=== PATIENT | male | born 1945 | race Caucasian/White ===

== ENCOUNTER 2016-11-04 06:48 | Observation (INO) | payer OTHER ==
[~2016-11-04] VITALS: Ht 172.7 cm; Wt 99.9 kg
[~2016-11-04 06:48] MED LIST: CHOL1TAB42 PO; CINN500C13 PO; DICL75TA PO; GABA300C5 PO; LISI-515 PO; METF1000 PO; MULT-65 PO; NOVOLOGMXP SQ; OMEG100010 PO; PRAV80TA2 PO; PROSCAP3 PO; SAW500CA PO; STOO100C PO; ZOVI400T PO
[2016-11-04] MEDS ORDERED: GENTAMICIN SULFATE 80 MG/2 ML VIAL ONE (07:10)
[2016-11-04] MEDS ORDERED: BUPIVACAINE/EPINEPHRINE 0.25% 50 ML VIAL ONE (07:10)
[2016-11-04] MEDS ORDERED: POVIDONE IODINE 5% (ANTISEPSIS KIT) 4 APPLICATIONS EACH NARE PRN (07:30)
[2016-11-04] MEDS ORDERED: CHLORHEXIDINE GLUCONATE 2 % 1 PACK (2 CLOTHS) TOPICAL PRN (07:30)
[2016-11-04] MEDS ORDERED: SODIUM CHLORID 0.9% 500 ML IV PRN (07:30)
[2016-11-04] MEDS ORDERED: ceFAZolin 1,000 MG/NS 100 ML IV SCH ×2 (07:30)
[2016-11-04] MEDS ORDERED: METOPROLOL TARTRATE 25 MG TAB PO PRN (07:30)
[2016-11-04] MEDS ORDERED: LACTATED RINGER'S 1000 ML IV PRN (07:30)
[2016-11-04] MEDS ORDERED: CHLORHEXIDINE GLUCONATE 4% SOLN 120 ML BTL TOPICAL SCH (07:30)
[2016-11-04] MEDS ORDERED: INSULIN HUMAN REGULAR 1,000 UNITS/10 ML VIAL SQ PRN (07:30)
[2016-11-04 07:48] VITALS: BP 147/83; PULSE 68; RESP 18; TEMP 97.8; O2SAT 99
[2016-11-04] MEDS ORDERED: fentaNYL CITRATE 250 MCG/5 ML AMP ONE (09:24)
[2016-11-04] MEDS ORDERED: ACETAMINOPHEN 1000 MG/100 ML VIAL IV ONE (09:24)
[2016-11-04] MEDS ORDERED: MIDAZOLAM HCL 2 MG/2 ML VIAL ONE (09:24)
[2016-11-04] MEDS ORDERED: FAMOTIDINE 20 MG/2 ML VIAL ONE (09:32)
[2016-11-04] MEDS ORDERED: MORPHINE SULFATE 4 MG/ML INJ ONE (11:39)
[2016-11-04] MEDS ORDERED: DO NOT ADM ANY ANTICOAGULANT DRUGS PRN (12:00)
[2016-11-04] MEDS ORDERED: NEOSTIGMINE 3 MG/3 ML SYR IV ONE (12:00)
[2016-11-04] MEDS ORDERED: LACTATED RINGER'S 1000 ML INJ 1,000 ML IV ONE (12:00)
[2016-11-04] MEDS ORDERED: ONDANSETRON HCL 4 MG/2 ML VIAL IV PUSH ONE (12:00)
[2016-11-04] MEDS ORDERED: ACETAMINOPHEN/HYDROcodone 325 MG/7.5 MG TAB PO PRN ×2 (12:00→13:45)
[2016-11-04] MEDS ORDERED: ePHEDrine/NS 25 MG/5 ML SYR IV ONE (12:00)
[2016-11-04] MEDS ORDERED: PROPOFOL 200 MG/20 ML AMP IV ONE (12:00)
[2016-11-04] MEDS ORDERED: BISACODYL 10 MG SUPP RECTAL PRN (13:45)
[2016-11-04] MEDS: SODIUM CHLORIDE 0.9% FLUSH 5 ML FLUSH IVF SCH ×2 (13:45→21:50)
[2016-11-04] MEDS ORDERED: ONDANSETRON HCL 4 MG/2 ML VIAL IV PRN (13:45)
[2016-11-04] MEDS ORDERED: SOD PHOSPHATE/SOD BIPHOSPHATE (ADULT) ENEMA 133ML PR PRN (13:45)
[2016-11-04] MEDS ORDERED: ALUMINUM/MAGNESIUM/SIMETH 30 ML CUP PO PRN (13:45)
[2016-11-04] MEDS ORDERED: SODIUM CHLORIDE 0.9% FLUSH 5 ML FLUSH IVF PRN (13:45)
[2016-11-04] MEDS ORDERED: Post-op Orders (for Pharmacy) MISC XX ONE (13:45)
[2016-11-04] MEDS: ACETAMINOPHEN/HYDROcodone 325 MG/7.5 MG TAB PO PRN ×2 (14:30→17:18)
--- NOTE | 2016-11-04 15:27 | RADRPT ---
EXAM DATE/TIME: 11/04/2016 11:03 [place] COMPARISON: No previous studies available for comparison. INDICATIONS : L4-5 laminectomy. MEDICAL HISTORY : None. SURGICAL HISTORY : None. ENCOUNTER: Initial ACUITY: 1 day PAIN SCORE: Non-responsive. LOCATION: Lumbar spine. FINDINGS: Surgical instrument is noted posteriorly at the L4-L5 level. CONCLUSION: Surgical instrument is noted posteriorly at the L4-L5 level. Johnathan Porras MD on November 04, 2016 at 15:23 Board Certified Radiologist. This report was verified electronically.
[2016-11-04] MEDS: MORPHINE SULFATE 4 MG/ML INJ IV PUSH PRN ×2 (15:30→21:50)
--- NOTE | 2016-11-04 15:54 | HHI.HP ---
[facility]ician Shad Sahu MD Admission Diagnosis Diagnoses: Travel History International Travel<30 Days: No Contact w/Intl Traveler <30 Da: No History of Present Illness Mr. Srinivasan is a 70 year old male. He had a lumbar spine surgery today related to lumbar spine stenosis. Severe lumbar spine stenosis was present at L3-4. Mild Lumbar spine stenosis was present at L5-S1, Moderate spine stenosis was present at L4-5. He has pain post op, when seen. The main reason he is staying is difficulty standing post op. He can move both limbs and has sensation, but his strength was not yet intact, so further monitoring is warranted. No other complaints. Medical conditions are DM2, HTN, BPH, and Hyperlipidemia. Review of Systems Constitutional: DENIES: Fatigue, Fever, Chills Eyes: DENIES: Blurred vision, Diplopia Ears, nose, mouth, throat: DENIES: Hearing loss, Vertigo Respiratory: DENIES: Apneas, Cough, Wheezing Cardiovascular: DENIES: Chest pain, Palpitations Gastrointestinal: DENIES: Abdominal pain, Black stools, Bloody stools Musculoskeletal: COMPLAINS OF: Back pain, DENIES: Joint pain Integumentary: DENIES: Abnormal pigmentation Hematologic/lymphatic: DENIES: Bruising Immunologic/allergic: DENIES: Eczema Neurologic: COMPLAINS OF: Abnormal gait, Localized weakness, DENIES: Headache , Paresthesias, Speech Problems, Tremor, Poor Balance Psychiatric: DENIES: Anxiety, Confusion Past Family Social History Past Medical History Diabetes mellitus type 2 Osteoarthritis BPH Transient hepatitis at 18 years of age (likely hepatitis A) Hypertension Hyperlipidemia Past Surgical History Shoulder surgery at left for rotator cuff Shoulder surgery at right first and cell procedure Reported Medications Reported Meds & Active Scripts Active Reported Diclofenac Sodium DR (Diclofenac Sodium) 75 Mg Tabdr 75 Mg PO BID Gabapentin 300 Mg Cap 300 Mg PO BID Zovirax (Acyclovir) 400 Mg Tab 400 Mg PO BID Lisinopril 20 Mg Tab 20 Mg PO DAILY Pravastatin 80 Mg Tab 80 Mg PO DAILY Metformin (Metformin HCl) 1,000 Mg Tab 1,000 Mg PO BIDPC With meals Novolog Mix 70-30 Inj (Insulin Aspart Prota 70%/Aspart 30%) 1,000 Unit/10 Ml Vial 45 Units SQ HS Stool Softener (Docusate Sodium) 100 Mg Cap 1 Cap PO DAILY Saw Cunningham 500 Mg Capsule 1 Cap PO DAILY Prostate Therapy Complex (Misc Natural Products) 1 Cap 1 Cap PO DAILY Raymond 3 1000 mg (Raymond-3 Fatty Acids) 1 Cap Cap 2 Cap PO DAILY Vitamin D-3 (Cholecalciferol) 2,000 Unit Tab 2,000 Unit PO DAILY Sm Cinnamon (Cinnamon) 500 Mg Cap 1,000 Mg PO DAILY Multi-Vitamin Daily (Multiple Vitamin) 1 Tab Tab 1 Tab PO DAILY Allergies: Coded Allergies: No Known Allergies (Unverified , 11/04/16) Active Ordered Medications Administered Medications Medications (Trade) Dose Ordered Sig/Stevie Route PRN Reason Start Time Stop Time Status Last Admin Dose Admin Chlorhexidine Gluconate (Hibiclens 4% Top Soln) 1 applic ONCE TOPICAL 11/04/16 07:30 11/07/16 07:29 11/04/16 08:23 Acetaminophen/ Hydrocodone Bitart (Byers 7.5-325 Mg) 1 tab Q4H PRN PO PAIN SCALE 1 TO 5 11/04/16 13:45 11/04/16 14:30 Family History Mother had malignant neoplastic disease Social History Former smoker, not currently smoking No alcohol use No drug abuse Physical Exam Vital Signs Vital Signs Date Time Temp Pulse Resp B/P Pulse Ox O2 Delivery O2 Flow Rate FiO2 11/04/16 12:15 97.5 76 20 140/75 94 Room Air 11/04/16 12:00 97.6 82 22 106/55 94 Room Air 11/04/16 11:45 83 22 127/70 93 Room Air 11/04/16 11:33 97.6 85 22 148/80 100 Nasal Cannula 2 11/04/16 07:48 97.8 68 18 147/83 99 Physical Exam GENERAL: NAD, A&Ox3 HEAD: Normocephalic. NECK: Supple, trachea midline. No lymphadenopathy. EYES: No scleral icterus. No injection or drainage. CARDIOVASCULAR: Regular rate and rhythm without murmurs, gallops, or rubs. RESPIRATORY: Breath sounds equal bilaterally. No accessory muscle use. GASTROINTESTINAL: Abdomen soft, non-tender, nondistended. MUSCULOSKELETAL: No cyanosis, or edema. Lower back pain with movements SKIN: Warm and dry. NEURO: No focal neurological deficitis. No asymmetry. Weakness in lower extremities. Imaging Last Impressions Lumbar Spine X-Ray 11/04/16 0000 Signed Impressions: Service Date/Time: , November 04, 2016 11:03 - CONCLUSION: Surgical instrument is noted posteriorly at the L4-L5 level. Johnathan Porras MD Assessment and Plan Problem List: (1) Hyperlipidemia ICD Code: E78.5 Status: Acute (2) Osteoarthritis ICD Code: M19.90 Status: Acute (3) Hypertension ICD Code: I10 Status: Acute (4) Diabetes mellitus type 2 in nonobese ICD Code: E11.9 Status: Acute Assessment and Plan Assessment and plan 70-year-old male status post lumbar surgery for stenosis Postop lumbar surgery for spinal stenosis Lower extremity weakness Bedrest overnight Reevaluate in a.m. Neurosurgeon following When necessary pain treatments Diabetes mellitus type 2 Follow blood sugars Insulin sliding scale Diabetic diet Hypertension Follow blood pressure Continue baseline treatments Hyperlipidemia Resume baseline treatments Follow as an outpatient DVT prophylaxis SCDs Discharge planning Pending improvement in patient's clinical status Shin Aquino MD Nov 04, 2016 3:54 pm
[2016-11-04] MEDS ORDERED: GLUCAGON 1 MG/ML VIAL OTHER PRN (16:00)
[2016-11-04] MEDS ORDERED: DEXTROSE 50% IN WATER 50 ML VIAL(D50) IV PRN (16:00)
[2016-11-04 16:40] VITALS: BP 157/90; PULSE 79; RESP 18; TEMP 97; O2SAT 97
[2016-11-04] MEDS: metFORMIN HCL 500 MG TAB PO SCH (17:14)
[2016-11-04] MEDS: LACTATED RINGER'S 1000 ML INJ 1,000 ML IV SCH (17:14)
[2016-11-04] MEDS: INSULIN ASPART SUPPLEMENTAL SCALE SQ SCH ×2 (17:16→22:04)
[2016-11-04 19:00] VITALS: BP 162/99; PULSE 68; RESP 18; TEMP 98.8; O2SAT 96
[2016-11-04] MEDS ORDERED: ZOLPIDEM TARTRATE 5 MG TAB PO PRN (21:00)
[2016-11-04] MEDS: ACYCLOVIR 200 MG CAP PO SCH (21:49)
[2016-11-04] MEDS: DICLOFENAC SODIUM 75 MG DELAYED RELEASE TAB PO SCH (21:49)
[2016-11-04] MEDS: GABAPENTIN 300 MG CAP PO SCH (21:50)
[2016-11-04] MEDS: INSULIN ASPAR PROT 70/30 1,000 UNITS/10 ML VIAL SQ SCH (22:05)
[2016-11-05] VITALS (7 sets, daily range): BP systolic 121–157; BP diastolic 63–80; PULSE 70–90; RESP 16–18; TEMP 95.1–98.6; O2SAT 93–95
[2016-11-05] MEDS: LACTATED RINGER'S 1000 ML INJ 1,000 ML IV SCH ×2 (02:01→08:58)
[2016-11-05] MEDS: MORPHINE SULFATE 4 MG/ML INJ IV PUSH PRN (05:23)
[2016-11-05] MEDS: INSULIN ASPART SUPPLEMENTAL SCALE SQ SCH ×4 (05:27→20:41)
--- NOTE | 2016-11-05 07:44 | PD.ORT.PN ---
Subjective Subjective Remarks pt states he is still in a lot of pain and having difficulty ambulating did speak to his nurse who states overnight caregiver said he was able to ambulate to the restroom with a walker with no difficulty Objective Vitals Vital Signs Date Time Temp Pulse Resp B/P Pulse Ox O2 Delivery O2 Flow Rate FiO2 11/05/16 06:48 77 11/05/16 04:00 98.6 77 17 121/65 95 11/05/16 00:00 98.5 80 17 121/80 94 11/04/16 19:00 98.8 68 18 162/99 96 11/04/16 16:40 97.0 79 18 157/90 97 11/04/16 12:15 97.5 76 20 140/75 94 Room Air 11/04/16 12:00 97.6 82 22 106/55 94 Room Air 11/04/16 11:45 83 22 127/70 93 Room Air 11/04/16 11:33 97.6 85 22 148/80 100 Nasal Cannula 2 11/04/16 07:48 97.8 68 18 147/83 99 I/O 11/04/16 11/04/16 11/04/16 11/05/16 11/05/16 11/05/16 07:00 15:00 23:00 07:00 15:00 23:00 Intake Total 1230 ml 480 ml Output Total 25 ml 325 ml Balance 1205 ml -325 ml 480 ml Intake Oral 480 ml IV Total 30 ml Other 1200 ml Output Urine Total 325 ml Estimated Blood Loss 25 ml # Voids 2 # Bowel Movements 0 Objective Remarks Patient resting in bed able to sit up and come to side of bed with no difficulty lumbar spine incision healing well, dermabond in place motor is +5/5 to lower extremities Assessment & Plan Assessment and Plan POD # 1 s/p L4-5 laminectomy/diskectomy PT-full weight bearing ambulation if PT feels patient is ambulating safely, discharge home today nurse to call me after patient seen by therapist orthopedically stable was contacted after PT assessment--- recommended walker and back brace and orders were put in. Recommendation was for patient to stay one more night to work on safe ambulation and transferring. If appropriate, will d/c home on Monday 11/06 Sharon Nye Nov 05, 2016 07:44
[2016-11-05] MEDS: metFORMIN HCL 500 MG TAB PO SCH ×2 (08:22→15:36)
[2016-11-05] MEDS: PRAVASTATIN SOD 80 MG TAB PO SCH (08:22)
[2016-11-05] MEDS: DICLOFENAC SODIUM 75 MG DELAYED RELEASE TAB PO SCH ×2 (08:22→20:32)
[2016-11-05] MEDS: GABAPENTIN 300 MG CAP PO SCH ×2 (08:22→20:32)
[2016-11-05] MEDS: SODIUM CHLORIDE 0.9% FLUSH 5 ML FLUSH IVF SCH ×2 (08:22→20:41)
[2016-11-05] MEDS: ACYCLOVIR 200 MG CAP PO SCH ×2 (08:22→20:32)
[2016-11-05] MEDS: MULTIVITAMIN TAB PO SCH (08:22)
[2016-11-05] MEDS: LISINOPRIL 20 MG TAB PO SCH (08:22)
[2016-11-05] MEDS: ACETAMINOPHEN/HYDROcodone 325 MG/7.5 MG TAB PO PRN ×3 (08:23→20:33)
[2016-11-05] MEDS ORDERED: WALKER WHEELS/F1 MIS (08:54)
--- NOTE | 2016-11-05 11:37 | HHI.PR ---
Subjective Remarks Additional strength improved since yesterday. He is able to walk with walker. However, he continues to complain of lower extremity weakness with attempts to ambulate. She says this does not bother him when he is seated or laying flat. Objective Vital Signs Date Time Temp Pulse Resp B/P Pulse Ox O2 Delivery O2 Flow Rate FiO2 11/05/16 10:53 96.8 70 18 123/63 95 11/05/16 08:10 98.3 80 17 140/68 95 11/05/16 06:48 77 11/05/16 04:00 98.6 77 17 121/65 95 11/05/16 00:00 98.5 80 17 121/80 94 11/04/16 19:00 98.8 68 18 162/99 96 11/04/16 16:40 97.0 79 18 157/90 97 11/04/16 12:15 97.5 76 20 140/75 94 Room Air 11/04/16 12:00 97.6 82 22 106/55 94 Room Air 11/04/16 11:45 83 22 127/70 93 Room Air I/O 11/04/16 11/04/16 11/04/16 11/05/16 11/05/16 11/05/16 07:00 15:00 23:00 07:00 15:00 23:00 Intake Total 1230 ml 480 ml Output Total 25 ml 325 ml Balance 1205 ml -325 ml 480 ml Intake Oral 480 ml IV Total 30 ml Other 1200 ml Output Urine Total 325 ml Estimated Blood Loss 25 ml # Voids 2 # Bowel Movements 0 Imaging Last Impressions Lumbar Spine X-Ray 11/04/16 0000 Signed Impressions: Service Date/Time: October 11:03 - CONCLUSION: Surgical instrument is noted posteriorly at the L4-L5 level. Johnathan Porras MD Objective Remarks GENERAL: NAD, A&Ox3 HEAD: Normocephalic. NECK: Supple, trachea midline. No lymphadenopathy. EYES: No scleral icterus. No injection or drainage. CARDIOVASCULAR: Regular rate and rhythm without murmurs, gallops, or rubs. RESPIRATORY: Breath sounds equal bilaterally. No accessory muscle use. GASTROINTESTINAL: Abdomen soft, non-tender, nondistended. MUSCULOSKELETAL: No cyanosis, or edema. SKIN: Warm and dry. NEURO: No focal neurological deficitis. A/P Problem List: (1) Lumbar spinal stenosis ICD Code: M48.06 (2) Diabetes mellitus type 2 in nonobese ICD Code: E11.9 (3) Hypertension ICD Code: I10 (4) Osteoarthritis ICD Code: M19.90 (5) Hyperlipidemia ICD Code: E78.5 Assessment and Plan Assessment and plan 70-year-old male postop lumbar spine surgery for lumbar spinal stenosis Postop lumbar surgery for spinal stenosis Lower extremity weakness Mild improvement Continue ambulation with PT and walker For possible inflammatory etiology and providing him a 1 time Solu-Medrol 40 mg IV dose Also for inflammation Start Naprosyn 250 mg by mouth twice a day Reevaluate in a.m. Orthopedic surgery following Continue When necessary pain treatments Diabetes mellitus type 2 Blood sugars well controlled Follow blood sugars Insulin sliding scale Diabetic diet Hypertension Blood pressure stable Follow blood pressure Continue baseline treatments Hyperlipidemia Resume baseline treatments Follow as an outpatient DVT prophylaxis SCDs Discharge planning Pending further improvement in patient's clinical status Shin Aquino MD Nov 05, 2016 11:37
[2016-11-05] MEDS ORDERED: NAPROXEN 500 MG TAB PO ONE (12:00)
[2016-11-05] MEDS ORDERED: methylPREDNISolone SOD SUCC 40 MG/1 ML VIAL IV PUSH ONE (12:00)
[2016-11-05] MEDS: NAPROXEN 250 MG TAB PO SCH (20:32)
[2016-11-05] MEDS: DOCUSATE SODIUM 100 MG CAP PO SCH (20:32)
[2016-11-05] MEDS: INSULIN ASPAR PROT 70/30 1,000 UNITS/10 ML VIAL SQ SCH (20:41)
[2016-11-06 00:40] VITALS: BP 138/79; PULSE 73; RESP 17; TEMP 96.5; O2SAT 94
[2016-11-06] MEDS: LACTATED RINGER'S 1000 ML INJ 1,000 ML IV SCH (01:34)
[2016-11-06 04:45] VITALS: BP 134/81; PULSE 87; RESP 17; TEMP 96.6; O2SAT 96
[2016-11-06] MEDS: INSULIN ASPART SUPPLEMENTAL SCALE SQ SCH (05:25)
[2016-11-06 08:00] VITALS: BP 157/75; PULSE 84; RESP 18; TEMP 96.5; O2SAT 99
[2016-11-06] MEDS: DICLOFENAC SODIUM 75 MG DELAYED RELEASE TAB PO SCH (08:37)
[2016-11-06] MEDS: PRAVASTATIN SOD 80 MG TAB PO SCH (08:38)
[2016-11-06] MEDS: NAPROXEN 250 MG TAB PO SCH (08:38)
[2016-11-06] MEDS: metFORMIN HCL 500 MG TAB PO SCH (08:38)
[2016-11-06] MEDS: DOCUSATE SODIUM 100 MG CAP PO SCH (08:38)
[2016-11-06] MEDS: LISINOPRIL 20 MG TAB PO SCH (08:38)
[2016-11-06] MEDS: ACYCLOVIR 200 MG CAP PO SCH (08:38)
[2016-11-06] MEDS: GABAPENTIN 300 MG CAP PO SCH (08:39)
[2016-11-06] MEDS: MULTIVITAMIN TAB PO SCH (08:39)
[2016-11-06] MEDS: SODIUM CHLORIDE 0.9% FLUSH 5 ML FLUSH IVF SCH (08:42)
[2016-11-06] MEDS ORDERED: HYDR-3580 PO (10:38)
[2016-11-06] MEDS ORDERED: NAPR250T PO (10:38)
[2016-11-06] MEDS ORDERED: DOCU100C PO (10:38)
--- NOTE | 2016-11-06 10:39 | PD.ORT.PN ---
Subjective Subjective Remarks doing well. walking in hallway. no issues. Objective Vitals Vital Signs Date Time Temp Pulse Resp B/P Pulse Ox O2 Delivery O2 Flow Rate FiO2 11/06/16 08:00 96.5 84 18 157/75 99 11/06/16 04:45 96.6 87 17 134/81 96 11/06/16 00:40 96.5 73 17 138/79 94 11/05/16 20:45 97.7 88 18 137/73 93 11/05/16 15:47 95.1 90 16 157/76 94 11/05/16 10:53 96.8 70 18 123/63 95 I/O 11/05/16 11/05/16 11/05/16 11/06/16 11/06/16 11/06/16 07:00 15:00 23:00 07:00 15:00 23:00 Intake Total 480 ml 720 ml 240 ml 240 ml Output Total 700 ml Balance 480 ml 20 ml 240 ml 240 ml Intake Oral 480 ml 720 ml 240 ml 240 ml Output Urine Total 700 ml # Voids 2 3 1 2 # Bowel Movements 0 0 0 Objective Remarks pt OOB and walking in hallway with PT lumbar spine incision healing well, dressing changed today. CDI. dermabond in place motor is +5/5 to lower extremities Assessment & Plan Assessment and Plan POD # 2 s/p L4-5 laminectomy/diskectomy PT-full weight bearing ambulation up OOB not wearing brace at the moment. dc home today orthopedically stable PT recommended walker and back brace Maurisio Champagne Jr., MD Nov 06, 2016 10:39
--- NOTE | 2016-11-06 10:40 | HHI.PR ---
Subjective Remarks Significant improvement today. Patient desires discharge today. He is able to ambulate better than the previous 2 days. Medically clear for discharge. Objective Vital Signs Date Time Temp Pulse Resp B/P Pulse Ox O2 Delivery O2 Flow Rate FiO2 11/06/16 08:00 96.5 84 18 157/75 99 11/06/16 04:45 96.6 87 17 134/81 96 11/06/16 00:40 96.5 73 17 138/79 94 11/05/16 20:45 97.7 88 18 137/73 93 11/05/16 15:47 95.1 90 16 157/76 94 11/05/16 10:53 96.8 70 18 123/63 95 I/O 11/05/16 11/05/16 11/05/16 11/06/16 11/06/16 11/06/16 06:59 14:59 22:59 06:59 14:59 22:59 Intake Total 480 ml 720 ml 240 ml 240 ml Output Total 700 ml Balance 480 ml 20 ml 240 ml 240 ml Intake Oral 480 ml 720 ml 240 ml 240 ml Output Urine Total 700 ml # Voids 2 3 1 2 # Bowel Movements 0 0 0 Objective Remarks GENERAL: NAD, A&Ox3 HEAD: Normocephalic. NECK: Supple, trachea midline. No lymphadenopathy. EYES: No scleral icterus. No injection or drainage. CARDIOVASCULAR: Regular rate and rhythm without murmurs, gallops, or rubs. RESPIRATORY: Breath sounds equal bilaterally. No accessory muscle use. GASTROINTESTINAL: Abdomen soft, non-tender, nondistended. MUSCULOSKELETAL: No cyanosis, or edema. SKIN: Warm and dry. NEURO: No focal neurological deficitis. A/P Problem List: (1) Lumbar spinal stenosis ICD Code: M48.06 (2) Diabetes mellitus type 2 in nonobese ICD Code: E11.9 (3) Hypertension ICD Code: I10 (4) Osteoarthritis ICD Code: M19.90 (5) Hyperlipidemia ICD Code: E78.5 Assessment and Plan Assessment and plan 70-year-old male postop lumbar spine surgery for lumbar spinal stenosis. Weakness has resolved. Patient ambulating long distances with walker. Continue naproxen for 3 days more. Medically clear for discharge. Postop lumbar surgery for spinal stenosis Lower extremity weakness Mild improvement Continue ambulation with PT and walker For possible inflammatory etiology and providing him a 1 time Solu-Medrol 40 mg IV dose Also for inflammation Start Naprosyn 250 mg by mouth twice a day Reevaluate in a.m. Orthopedic surgery following Continue When necessary pain treatments Diabetes mellitus type 2 Blood sugars well controlled Follow blood sugars Insulin sliding scale Diabetic diet Hypertension Blood pressure stable Follow blood pressure Continue baseline treatments Hyperlipidemia Resume baseline treatments Follow as an outpatient DVT prophylaxis SCDs Discharge planning Improved. Medically clear for discharge today. Shin Aquino MD Nov 06, 2016 10:40 am
--- NOTE | 2016-11-06 18:14 | MP ---
cc: FRANCINE SANCHEZ ALBERT DATE OF SURGERY November 04, 2016 PREOPERATIVE DIAGNOSIS 1. L4-5 severe spinal stenosis. 2. L4-5 herniated nucleus pulposus. 3. Lumbar spine degenerative disease osteoarthritis. 4. Bilateral lumbar radiculitis with bilateral lower extremity weakness. POSTOPERATIVE DIAGNOSIS 1. L4-5 severe spinal stenosis. 2. L4-5 herniated nucleus pulposus. 3. Lumbar spine degenerative disease osteoarthritis. 4. Bilateral lumbar radiculitis with bilateral lower extremity weakness. PROCEDURE L4-5 bilateral hemilaminectomy, decompression nerve root, foraminotomy; L4-5 diskectomy. SURGEON Randal Maguire MD ASSESSMENT Sharon Nye PA-C SPECIMEN None. ESTIMATED BLOOD LOSS 25 cc. COMPLICATIONS None. ANESTHESIA General. DRAINS None. CONDITION Stable. PLAN OF ACTIVITY As per orders. PROCEDURE IN DETAIL My psychiatric technician assistant Sharon Nye PA-C, was present for the entire surgical case. She was medically necessary for the entire case because of the complexity of the case and to facilitate the performance of the procedure. The POTATO PEELING MACHINE OPERATOR at the back table not a skilled set for this case to manipulate the instruments, e.g., the multiple different soft tissue retractors and nerve root retractors. The patient was brought in the operating room, had satisfactory general endotracheal anesthesia by the department of anesthesia. The patient was carefully transferred onto the [facility] spinal frame. All pressure points were well-padded. Lumbosacral spine was prepped and draped in the usual sterile manner. Under fluoroscopic guidance the L4-5 interspace was identified. The operative site was anesthetized with 20 cc of 0.25% Marcaine with epinephrine. Small midline incision made over L4-5. Dissection continued through skin and subcutaneous tissue. process. Paraspinal musculature gently removed from posterior elements posteriorly. Localizing x-rays were used throughout the entire operative procedure to confirm the L4-5 interspace. Bilateral decompressive hemilaminectomy performed at L4-5. Patient found to have severe spinal stenosis and foraminal stenosis. Very satisfactory decompression was performed. Dissection was carried on the left side. The nerve root gently retracted medially. Patient found to have a mild degree of herniated nucleus pulposus with an osteophyte disk complex. The annulus was incised and diskectomy performed without difficulty. Patient found to have satisfactory decompression neurological elements. There is no evidence of CSF leak. There was no excessive bleeding. Surgicel was used to help coagulate the epidural space. The wound was irrigated with copious amounts of sterile saline, antibiotic solution, the wound itself was dry. The wound closed in routine manner. Fascia closed with a #2 Tycron suture. Subcutaneous tissue was closed with 2-0 Vicryl suture. The skin was approximated with running subcuticular 3-0 Vicryl suture. Dermabond placed over the incisions. Sterile dressings were applied. The patient tolerated the procedure well, arrived to the recovery room in stable and satisfactory condition. MD JOSS Hart/KHALIDA /11:26 AM /5:51 PM ROBBY
== END 2016-11-06 12:18 | disposition home or self-care (01) ==
LOC: HSDC 06:48 → HSDI 13:34 → N06B 16:16
PROVIDERS: ADMIT Orthopaedic Surgery Orthopaedic Surgery of the Spine; ATTEND Orthopaedic Surgery Orthopaedic Surgery of the Spine
DX: M48.06 Spinal stenosis, lumbar region (principal); M51.16 Intervertebral disc disorders with radiculopathy, lumbar region; E11.9 Type 2 diabetes mellitus without complications; Z79.4 Long term (current) use of insulin
CPT/HCPCS: 00630; 63030; 72020; 76000; 82948; 94150; 97110; 97116; 97163; G0378; G8987; G8988; J0131; J0690; J1580; J1815; J2250; J2270; J2405; J2710; J2920; J3010; J7120; L0627